=== PATIENT | female | born 1985 | race Caucasian/White ===

== ENCOUNTER 2016-10-07 17:32 | Emergency (ER) | payer OTHER ==
[~2016-10-07 17:32] MED LIST: ALBUTEROL17 GM INH; BENTYL20 M1 PO; BUSPAR5 M1 PO; ELIMITE60 GM TOP; FLEXERIL10 M1 PO; GABAPENTIN800 MG PO; MOTRIN600 M1 PO; NAPROSYN500 MG PO; NO MEDICATIONS; PHENERGAN DM1 ML PO; SEROQUEL50 MG PO; SUBOXONE 8 MG-1 EACH SL; TYLENOL #3 PO; ULTRAM PO; VICODIN 5/500 T1 TAB PO
== END 2016-10-07 22:00 | disposition left against medical advice (07) ==
LOC: CED 17:32
DX: Z53.21 Procedure and treatment not carried out due to patient leaving prior to being seen by health care provider (principal)

== ENCOUNTER → 2016-12-29 | Outpatient (CLI) | payer OTHER ==
--- NOTE | ~2016-12-29 | NM22 ---
[facility] A Service of [facility] RADIOLOGY TEXT RESULTS PATIENT: AURELIANO HOUGH LOCATION: [facility] : 87 UNIT #: [id number] AGE: [address]: Hussein Wilson MD SEX: F ORDER DR: [id number] [facility] [address] [place], [place] [address] [id number] O MR#: [id number] Acc #: [id number] NAME: AURELIANO HOUGH : 1985 SEX: F STUDY DATE/TIME: 12/29/2016 11:23 UNIT: [facility] ROOM: STUDY DESCRIPTION: NM Hepatobiliary W GB Pharm Attending Physician: Hussein Wilson M.D. Referring Physician: Hussein Wilson M.D. Ordering Physician: Hussein Wilson M.D. Primary Care Physician: Hussein Wilson M.D. MEDICAL IMAGING REPORT This report is preliminary unless electronic signature is present EXAM Hepatobiliary study with gallbladder stimulation INDICATION Abdominal pain a few months ago. FINDINGS The patient was given 5.42 mCi technetium 99m-Choletec. There is prompt visualization of the liver, gallbladder and small bowel. At 60 minutes the patient was given 1.4 mcg of Kinevac and 30-minute ejection fraction was 92%. IMPRESSION Normal study with an ejection fraction of 92%. Dictated by... Gallo Riddle M.D. THIS IS AN ELECTRONICALLY VERIFIED REPORT Gallo Riddle M.D. at 12/30/2016 1:36 PM Clemencia TD: 12/29/2016 23:54 JOB #: [id number] MEDICAL IMAGING REPORT Page 1 of 1 COPY
== END | disposition home or self-care (01) ==
LOC: CNUC 09:30
DX: R10.9 Unspecified abdominal pain (principal)
CPT/HCPCS: 78227; A9537; J2805